=== PATIENT | male | born 1985 | race Caucasian/White ===

== ENCOUNTER 2017-07-04 18:51 | Emergency (ER) | payer MEDICAID ==
[~2017-07-04] VITALS: Ht 182.9 cm; Wt 84.5 kg
[~2017-07-04 18:51] MED LIST: CYAN1TAB44 PO; ERGO500013 PO
[2017-07-04] MEDS ORDERED: MONT10TA21 PO (19:23)
[2017-07-04] MEDS ORDERED: TIOT4MIS3 IH (19:23)
[2017-07-04 21:20] VITALS: BP 127/90
== END 2017-07-04 21:34 | disposition home or self-care (01) ==
LOC: EMS 18:52
DX: R07.9 Chest pain, unspecified (principal); R03.0 Elevated blood-pressure reading, without diagnosis of hypertension; J45.909 Unspecified asthma, uncomplicated; R07.0 Pain in throat
CPT/HCPCS: 71046; 93005; 99284

== ENCOUNTER 2018-08-31 21:06 | Emergency (ER) | payer MEDICAID ==
[~2018-08-31] VITALS: Ht 182.9 cm; Wt 86.8 kg
[~2018-08-31 21:06] MED LIST changes: -CYAN1TAB44 PO; -ERGO500013 PO; +MONT10TA21 PO; +TIOT4MIS3 IH
[2018-08-31] MEDS ORDERED: IBUPROFEN 800 MG TABLET PO ONE (23:15)
[2018-09-01 00:44] VITALS: BP 119/63
== END 2018-09-01 00:55 | disposition home or self-care (01) ==
LOC: EMS 21:06
DX: R07.9 Chest pain, unspecified (principal); J45.909 Unspecified asthma, uncomplicated
CPT/HCPCS: 85379; 93005